=== PATIENT | female | born 1995 | race Two or more races ===

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

== ENCOUNTER 2017-06-02 00:09 | Emergency (ER) | payer MEDICAID ==
[~2017-06-02] VITALS: Ht 157.5 cm; Wt 95.7 kg
[~2017-06-02 00:09] MED LIST changes: +AUGMENTIN 500-1 EACH ORAL
[2017-06-02 00:20] VITALS: BP 130/84
[2017-06-02] MEDS ORDERED: PSEUDOEPHEDRINE30 MG PO (01:25)
[2017-06-02] MEDS ORDERED: FLONASE ALLERG9.9 ML NS (01:25)
[2017-06-02 01:33] VITALS: BP_SYST 145; BP_SYST 155; BP_DIAS 92; BP_DIAS 95
--- NOTE | 2017-06-02 05:39 | Emergency Room Report ---
History of Present Illness General Chief Complaint: Flu Like Symptoms Source: Patient Present Illness HPI 21YOF c/o 3 days sinus congestion, rhinorrhea, sore throat Denies fever/chills, headache, neck pain/stiffness Denies previous sinusitis Didnt take OTC meds Allergies: Coded Allergies: No Known Allergies (Unverified , 03/19/16) Patient History Past Medical History: none Past Surgical History: none Pertinent Family History: none Social History: Denies: smoking, alcohol use, drug use Last Menstrual Period: MAY 20 Now: No Immunizations: UTD Reviewed Nursing Documentation: PMH: Agreed, PSxH: Agreed Nursing Documentation-PMH Past Medical History: No Stated History Hx Hypertension: Yes Review of Systems All Other Systems: negative except mentioned in HPI Physical Exam Vital Signs Date Time Temp Pulse Resp B/P (MAP) Pulse Ox O2 Delivery O2 Flow Rate FiO2 06/02/17 00:15 98.1 118 18 155/95 98 Room Air Sp02 EP Interpretation: reviewed, normal General Appearance: normal inspection, well appearing, no apparent distress, alert, GCS 15, non-toxic Head: normocephalic, atraumatic Eyes: bilateral eye PERRL, bilateral eye EOMI ENT: normal ENT inspection, hearing grossly normal, normal pharynx, no angioedema, normal voice, nasal congestion, other - +maixillary sinus ttp Neck: normal inspection, full range of motion, supple, no bony tend Respiratory: normal inspection, lungs clear, normal breath sounds, no respiratory distress, no retraction, no wheezing Cardiovascular #1: regular rate, rhythm, no edema Gastrointestinal: normal inspection, normal bowel sounds, non tender, soft, no guarding, no hernia Genitourinary: no CVA tenderness Musculoskeletal: normal inspection, back normal, normal range of motion, Jj' s Sign negative Neurologic: normal inspection, alert, oriented x3, responsive, clinical laboratory service teacher III-XII nml as tested, speech normal Psychiatric: normal inspection, judgement/insight normal, mood/affect normal Skin: normal inspection, normal color, no rash Lymphatic: normal inspection Medical Decision Making Diagnostic Impression: Primary Impression: Sinusitis Qualified Codes: J01.00 - Acute maxillary sinusitis, unspecified ER Course Acute sinus congestion, sinusitis VSS. Afebrile. No strep pharyngitis Lungs CTAB No systemic symptoms, sepsis Rx Flonase, sudafed PMD followup DC home Last Vital Signs Date Time Temp Pulse Resp B/P (MAP) Pulse Ox O2 Delivery O2 Flow Rate FiO2 06/02/17 01:33 98.1 82 18 155/95 98 Room Air Status: improved Disposition: HOME, SELF-CARE Condition: Improved Scripts Pseudoephedrine Hcl* (SUDAFED*) 30 Mg Tablet 30 MG PO Q6H for sinus congestion for 3 Days, #20 TAB Prov: VISHNU MOSCOSO M.D. 06/02/17 Fluticasone Propionate (Flonase Allergy Relief) 9.9 Ml [place].susp 9.9 ML NS BID for 7 Days, #1 UNIT Prov: VISHNU MOSCOSO M.D. 06/02/17 Referrals: [facility],REFERRING (PCP) Patient Instructions: Sinusitis, Adult, [id number] Additional Instructions: Take sudafed and flonase as needed Twice a day for sinus congestion Followup with your primary care doctor in 2-3 days VISHNU MOSCOSO M.D. Jun 02, 2017 05:39
== END 2017-06-02 01:30 | disposition home or self-care (01) ==
LOC: EMR 00:30
DX: J01.00 Acute maxillary sinusitis, unspecified (principal)
CPT/HCPCS: 99284

== ENCOUNTER 2017-07-21 21:19 | Emergency (ER) | payer MEDICAID ==
[~2017-07-21] VITALS: Ht 157.5 cm; Wt 87.5 kg
[~2017-07-21 21:19] MED LIST changes: +FLONASE ALLERG9.9 ML NS; +PSEUDOEPHEDRINE30 MG PO
[2017-07-21 21:20] VITALS: BP 152/95
[2017-07-21 22:23] LABS: BASOPHILS % (AUTO) 1.1 % (0.0-2.0); EOSINOPHILS % (AUTO) 0.9 % (0.0-3.0); LYMPHOCYTES % (AUTO) 40.6 % (20.0-45.0); MEAN CORPUSCULAR HEMOGLOBIN 29.4 PG (27.0-31.0); MEAN CORPUSCULAR HGB CONC 31.8 G/DL (32.0-36.0); MEAN CORPUSCULAR VOLUME 93 FL (80-99); MEAN PLATELET VOLUME 6.7 FL (6.5-10.1); NEUTROPHILS % (AUTO) 48.4 % (45.0-75.0); PLATELET COUNT 297 K/UL (150-450); RED BLOOD COUNT 4.21 M/UL (4.20-5.40); RED CELL DISTRIBUTION WIDTH 11.4 % (11.6-14.8); WHITE BLOOD COUNT 9.8 K/UL (4.8-10.8)
[2017-07-21 22:27] LABS: ALANINE AMINOTRANSFERASE 50 U/L (12-78); ANION GAP 8 mmol/L (5-15); ASPARTATE AMINO TRANSFERASE 19 U/L (15-37); CALCIUM 9.5 MG/DL (8.5-10.1); CARBON DIOXIDE 30 MMOL/L (21-32); CHLORIDE 103 MMOL/L (98-107); CREATININE 0.8 MG/DL (0.55-1.30); GLOMERULAR FILTRATION RATE > 60 mL/min (>60); POTASSIUM 4.4 MMOL/L (3.5-5.1); SODIUM 141 MMOL/L (136-145); TOTAL PROTEIN 8.2 G/DL (6.4-8.2)
[2017-07-21 22:54] LABS: APPEARANCE,URINE CLEAR; KETONES,URINE NEGATIVE (NEGATIVE); LEUKOCYTE ESTERASE ,URINE NEGATIVE (NEGATIVE); NITRITE,URINE NEGATIVE (NEGATIVE); PH,URINE 6 (4.5-8.0); PROTEIN,URINE NEGATIVE (NEGATIVE); UROBILINOGEN,URINE NORMAL MG/DL (0.0-1.0)
[2017-07-21 23:09] VITALS: BP 158/86
--- NOTE | 2017-07-22 05:14 | Emergency Room Report ---
History of Present Illness General Chief Complaint: Dizziness Source: Patient Present Illness HPI 21-year-old female presents ED for evaluation. States that for last few days she's been feeling dizzy and weak. With nausea. Denies vomiting. Denies fevers or chills. Denies chest pain shortness of breath. No aggravating relieving factors. Denies any other associated symptoms Allergies: Coded Allergies: No Known Allergies (Unverified , 03/19/16) Patient History Past Medical History: HTN Past Surgical History: none Pertinent Family History: none Social History: Denies: smoking, alcohol use, drug use Last Menstrual Period: 07/19/17 Now: No Immunizations: UTD Reviewed Nursing Documentation: PMH: Agreed, PSxH: Agreed Nursing Documentation-PMH Past Medical History: No History, Except For Hx Hypertension: Yes Review of Systems All Other Systems: negative except mentioned in HPI Physical Exam Vital Signs Date Time Temp Pulse Resp B/P (MAP) Pulse Ox O2 Delivery O2 Flow Rate FiO2 07/21/17 21:20 98.2 87 20 152/95 100 Room Air Sp02 EP Interpretation: reviewed, normal General Appearance: no apparent distress, alert, GCS 15, non-toxic Head: normocephalic, atraumatic Eyes: bilateral eye normal inspection, bilateral eye PERRL ENT: hearing grossly normal, normal pharynx, no angioedema, normal voice Neck: full range of motion, supple/symm/no masses Respiratory: chest non-tender, lungs clear, normal breath sounds, speaking full sentences Cardiovascular #1: regular rate, rhythm, no edema Cardiovascular #2: 2+ carotid (R), 2+ carotid (L), 2+ radial (R), 2+ radial (L) , 2+ dorsalis pedis (R), 2+ dorsalis pedis (L) Gastrointestinal: normal bowel sounds, non tender, soft, non-distended, no guarding, no rebound Rectal: deferred Genitourinary: normal inspection, no CVA tenderness Musculoskeletal: back normal, gait/station normal, normal range of motion, non- tender Neurologic: alert, oriented x3, responsive, motor strength/tone normal, sensory intact, speech normal Psychiatric: judgement/insight normal, memory normal, mood/affect normal, no suicidal/homicidal ideation Reflexes: 3+ bicep (R), 3+ bicep (L), 3+ tricep (R), 3+ tricep (L), 3+ knee (R) , 3+ knee (L) Skin: normal color, no rash, warm/dry, well hydrated Lymphatic: no adenopathy Medical Decision Making Diagnostic Impression: Primary Impression: Hypertension Qualified Codes: I10 - Essential (primary) hypertension Additional Impression: Weakness ER Course 21-year-old female presents ED complaining of weakness and dizziness. Feeling nauseous. Differential-dehydration, UTI, sepsis Patient placed on stretcher. After initial history and physical I ordered labs , IV fluids, Zofran No leukocytosis. Hemoglobin/hematocrit stable, electrolytes okay,, UA negative On reassessment symptoms are improved. Patient states she feels better wishes to be discharged. Patient is hypertensive in triage. On last ED visit approximately 1 month ago patient was also noted to be hypertensive. Recommended patient followup with PMD for further recommendation, possibly antihypertensive medication Diagnoses-hypertension, weakness Stable and discharged to home. Followup with PMD. Return to ED if symptoms recur or worsen Labs Test 07/21/17 21:50 White Blood Count 9.8 K/UL (4.8-10.8) Red Blood Count 4.21 M/UL (4.20-5.40) Hemoglobin 12.4 G/DL (12.0-16.0) Hematocrit 39.0 % (37.0-47.0) Mean Corpuscular Volume 93 FL (80-99) Mean Corpuscular Hemoglobin 29.4 PG (27.0-31.0) Mean Corpuscular Hemoglobin Concent 31.8 G/DL (32.0-36.0) Red Cell Distribution Width 11.4 % (11.6-14.8) Platelet Count 297 K/UL (150-450) Mean Platelet Volume 6.7 FL (6.5-10.1) Neutrophils (%) (Auto) 48.4 % (45.0-75.0) Lymphocytes (%) (Auto) 40.6 % (20.0-45.0) Monocytes (%) (Auto) 9.0 % (1.0-10.0) Eosinophils (%) (Auto) 0.9 % (0.0-3.0) Basophils (%) (Auto) 1.1 % (0.0-2.0) Urine Color Pale yellow Urine Appearance Clear Urine pH 6 (4.5-8.0) Urine Specific [place] 1.020 (1.005-1.035) Urine Protein Negative (NEGATIVE) Urine Glucose (UA) Negative (NEGATIVE) Urine Ketones Negative (NEGATIVE) Urine Occult Blood Negative (NEGATIVE) Urine Nitrite Negative (NEGATIVE) Urine Bilirubin Negative (NEGATIVE) Urine Urobilinogen Normal MG/DL (0.0-1.0) Urine Leukocyte Esterase Negative (NEGATIVE) Urine HCG, Qualitative Negative Sodium Level 141 MMOL/L (136-145) Potassium Level 4.4 MMOL/L (3.5-5.1) Chloride Level 103 MMOL/L (98-107) Carbon Dioxide Level 30 MMOL/L (21-32) Anion Gap 8 mmol/L (5-15) Blood Urea Nitrogen 14 mg/dL (7-18) Creatinine 0.8 MG/DL (0.55-1.30) Estimat Glomerular Filtration Rate > 60 mL/min (>60) Glucose Level 127 MG/DL (74-106) Calcium Level 9.5 MG/DL (8.5-10.1) Total Bilirubin 0.3 MG/DL (0.2-1.0) Aspartate Amino Transf (AST/SGOT) 19 U/L (15-37) Alanine Aminotransferase (ALT/SGPT) 50 U/L (12-78) Alkaline Phosphatase 74 U/L (46-116) Total Protein 8.2 G/DL (6.4-8.2) Albumin 4.2 G/DL (3.4-5.0) Globulin 4.0 g/dL Albumin/Globulin Ratio 1.0 (1.0-2.7) Last Vital Signs Date Time Temp Pulse Resp B/P (MAP) Pulse Ox O2 Delivery O2 Flow Rate FiO2 07/21/17 23:09 85 21 158/86 98 Room Air 07/21/17 21:24 98.1 Status: improved Disposition: HOME, SELF-CARE Condition: Stable Patient Instructions: Near-Syncope RAVINDER SPARKS M.D. Jul 22, 2017 05:14
== END 2017-07-21 23:16 | disposition home or self-care (01) ==
LOC: EMR 21:42
DX: I10 Essential (primary) hypertension (principal); R53.1 Weakness; R42 Dizziness and giddiness
CPT/HCPCS: 36415; 80053; 81003; 81025; 85025; 96361; 96374; 99284; J2405

== ENCOUNTER 2017-09-25 17:39 | Emergency (ER) | payer MEDICAID ==
[~2017-09-25] VITALS: Ht 160 cm; Wt 87.5 kg
[2017-09-25 19:10] VITALS: BP 152/100
[2017-09-25] MEDS ORDERED: PROMETHAZINE-D118 ML ORAL (19:31)
[2017-09-25] MEDS ORDERED: IBUPROFEN600 MG ORAL (19:31)
[2017-09-25] MEDS ORDERED: TAMIFLU75 MG ORAL (19:31)
[2017-09-25 19:55] VITALS: BP 152/100
--- NOTE | 2017-09-25 21:46 | Emergency Room Report ---
History of Present Illness General Chief Complaint: Upper Respiratory Illness Source: Patient Present Illness [facility] The patient is a 22-year-old female presenting for cough, fever, chills, fatigue , and myalgia for the past 2 days. She has used DayQuil at home which helps. She denies any recent travel. She denies any other symptoms including shortness of breath, wheezing, rash, vomiting Allergies: Coded Allergies: No Known Allergies (Unverified , 03/19/16) Patient History Past Medical History: see triage record Pertinent Family History: none Last Menstrual Period: 09/21/17 Reviewed Nursing Documentation: PMH: Agreed, PSxH: Agreed Nursing Documentation-PMH Past Medical History: No History, Except For Hx Hypertension: Yes Review of Systems All Other Systems: negative except mentioned in HPI Physical Exam Vital Signs Date Time Temp Pulse Resp B/P (MAP) Pulse Ox O2 Delivery O2 Flow Rate FiO2 09/25/17 17:47 99.3 120 18 152/100 100 09/25/17 17:52 Room Air Sp02 EP Interpretation: reviewed, normal General Appearance: no apparent distress, alert, GCS 15, non-toxic Head: normocephalic, atraumatic Eyes: bilateral eye normal inspection, bilateral eye PERRL ENT: hearing grossly normal, normal pharynx, no angioedema, normal voice, uvula midline, nasal congestion, pharyngeal erythema Neck: full range of motion, supple/symm/no masses Respiratory: chest non-tender, lungs clear, normal breath sounds, speaking full sentences Cardiovascular #1: regular rate, rhythm, no edema Musculoskeletal: back normal, gait/station normal, normal range of motion, non- tender Neurologic: alert, oriented x3, responsive, motor strength/tone normal, sensory intact, speech normal Psychiatric: judgement/insight normal, memory normal, mood/affect normal, no suicidal/homicidal ideation Skin: normal color, no rash, warm/dry, well hydrated Lymphatic: no adenopathy Medical Decision Making PA Attestation Dr. Rhodes is my supervising physician. Patient management was discussed with my supervising physician Diagnostic Impression: Primary Impression: Influenza ER Course The patient is a 22-year-old female presenting for cough, fever, chills, fatigue , and myalgia for the past 2 days Differential diagnosis include but not limited to influenza, pharyngitis, sinusitis, AOM, bronchitis, PNA Physical exam: Patient is afebrile. Lethargic HEENT exam reveals pharyngeal erythema. No exudate. Nasal congestion Lungs are clear to auscultation bilaterally. No respiratory distress Skin warm and dry The patient will be treated for influenza with prescription for Motrin, Tamiflu , and cough medication. She is given strict ER precautions. She was told this is highly contagious. Last Vital Signs Date Time Temp Pulse Resp B/P (MAP) Pulse Ox O2 Delivery O2 Flow Rate FiO2 09/25/17 17:52 120 18 Room Air 09/25/17 17:47 99.3 152/100 100 Status: improved Disposition: HOME, SELF-CARE Condition: Improved Scripts Oseltamivir Phosphate (Tamiflu) 75 Mg Capsule 75 MG ORAL TWICE A DAY, #10 CAP Prov: KAYY TORRES.A. 09/25/17 D-Methorphan Hb/Prometh Hcl* (PROMETHAZINE-DM SYRUP*) 118 Ml Syrup 5 ML ORAL Q6H Y for For Cough, #118 ML 0 Refills Prov: KAYY TORRES P.A. 09/25/17 Ibuprofen* (MOTRIN*) 600 Mg Tablet 600 MG ORAL Q8H Y for For Pain, #30 TAB 0 Refills Prov: KAYY TORRES P.A. 09/25/17 Referrals: [facility],REFERRING (PCP) Patient Instructions: Influenza, Adult Additional Instructions: I discussed my findings with the patient. All questions and concerns have been answered. Treatment and medication compliance have been addressed. I advised the patient that they need to follow up with PMD in 3-5 days. Return to ED if pain remains or worsens, cough worsens or remains, you notice blood in your sputum, you notice wheezing, you experience a fever, or if needed for any reason. Patient verbalized understanding of discharge instructions. KAYY TORRES Sep 25, 2017 21:46
== END 2017-09-25 19:55 | disposition home or self-care (01) ==
LOC: EMR 19:30
DX: J11.1 Influenza due to unidentified influenza virus with other respiratory manifestations (principal); I10 Essential (primary) hypertension
CPT/HCPCS: 99283

== ENCOUNTER 2018-12-11 16:42 | Emergency (ER) | payer MEDICAID ==
[~2018-12-11] VITALS: Ht 160 cm; Wt 86.2 kg
[~2018-12-11 16:42] MED LIST changes: +PROMETHAZINE-D118 ML ORAL; +TAMIFLU75 MG ORAL
[2018-12-11 17:00] VITALS: BP 131/75
--- NOTE | 2018-12-11 17:00 | NUR ---
ED Nurse Note: pt walked in to ER c/o abdominal pain 07/09. pt aao x4, no V/N/D at this moment. pt able to provide urine. ambulatory and skin clean and intact.
[2018-12-11] MEDS ORDERED: Lidocaine 2% Visc 15ml soln ORAL ONE (17:15)
[2018-12-11] MEDS ORDERED: Dicyclomine HCl 10mg/5ml oral soln ORAL ONE (17:15)
[2018-12-11] MEDS ORDERED: Mylanta II UD 30ml ORAL ONE (17:15)
--- NOTE | 2018-12-11 17:15 | Emergency Room Report ---
History of Present Illness General Chief Complaint: Abdominal Pain Source: Patient Present Illness HPI 23-year-old female patient presents ER complaining of vomiting and diarrhea x3 days. Reports last episode of vomiting was earlier today and last episode of diarrhea was yesterday. Denies blood in vomit or stool. Reports able to pass gas and normal stool since that time. Reports one contact at home with similar symptoms. Denies recent travel outside the country. Denies fever, chest pain, shortness of breath. Reports epigastric abdominal pain. Denies radiation of pain symptoms. Denies drinking alcohol or drugs. Denies other aggravating or relieving factors. States is been able to tolerate p.o. fluids and food since that time without vomiting. Allergies: Coded Allergies: No Known Allergies (Unverified , 03/19/16) Patient History Past Medical History: see triage record Last Menstrual Period: 12/06/18 Reviewed Nursing Documentation: PMH: Agreed; PSxH: Agreed Nursing Documentation-PMH Past Medical History: No Stated History Hx Hypertension: Yes Review of Systems All Other Systems: negative except mentioned in HPI Physical Exam Vital Signs Date Time Temp Pulse Resp B/P (MAP) Pulse Ox O2 Delivery O2 Flow Rate FiO2 12/11/18 16:48 98.2 90 18 148/94 99 Room Air Sp02 EP Interpretation: reviewed, normal General Appearance: well appearing, no apparent distress, alert, GCS 15, non- toxic Head: normocephalic, atraumatic Eyes: bilateral eye normal inspection, bilateral eye PERRL ENT: hearing grossly normal, normal pharynx, no angioedema, normal voice, uvula midline, moist mucus membranes Neck: full range of motion, no meningismus, no bony tend Respiratory: lungs clear, normal breath sounds, no rhonchi, no respiratory distress, no accessory muscle use, no wheezing, speaking full sentences Cardiovascular #1: regular rate, rhythm, no edema, normal capillary refill Gastrointestinal: normal bowel sounds, non tender, soft, no mass, non-distended , no guarding, no rebound, other - Negative Rovsing, negative obturator Genitourinary: no CVA tenderness Musculoskeletal: back normal, digits/nails normal, gait/station normal, normal range of motion, non-tender Neurologic: alert, oriented x3, responsive, motor strength/tone normal, sensory intact Psychiatric: mood/affect normal Skin: no rash, normal turgor Medical Decision Making PA Attestation Dr. Monreal is my supervising Physician whom patient management has been discussed with. Diagnostic Impression: Primary Impression: Vomiting and diarrhea Additional Impression: Epigastric pain ER Course Pt. presents to the ED c/o vomiting and diarrhea. Ddx considered but are not limited to viral syndrome, gastritis, enteritis, food poisoning, GERD, reflux, dehydration, anemia. Physical exam benign, no abdominal TTP, negative Cadet sign, negative Rovsing, negative obturator, low suspicion for appendicitis or cholecystitis, does not require labs or imaging at this time. Vital signs: are WNL, pt. is afebrile at discharge. ordered zofran. ED COURSE: Provide with Zofran, GI cocktail, Pepcid and IV fluids. No fever, no blood in stool, no recent travel or hospitalizations, does not require abx treatment at this time. No signs of dehydration, moist mucus membranes, cap refill <2seconds, normal skin turgor. CBC and CMP unremarkable, no elevation WBCs or LFTs, electrolytes within normal limits, H&H normal, no dehydration Lipase within normal limits UA unremarkable, low suspicion for UTI, elevated RBCs likely due to patient currently on menstrual period. Urine negative Patient instructed on clear liquid diet and BRAT diet. Patient instructed to remain hydrated, drink plenty of fluids. Patient questions asked and answered. Patient states understanding and agreement to treatment plan. ER precautions given, return to ER for new or worsening of symptoms. DISCHARGE: Rx provided for Tylenol for pain symptoms Rx provided for zofran At this time pt. is stable for d/c to home. Patient is resting comfortably, laughing, in no acute distress, nontoxic appearing. Will provide printed patient care instructions, and any necessary prescriptions. Care plan and follow up instructions have been discussed with the patient prior to discharge. Patient instructed to followup with PCP in 3-5 days. Patient reports understanding and agreement to treatment plan. Patient questions asked and answered. ER precautions given; patient instructed to return to ER for new or worsening of symptoms including but not limited to fever, intractable vomiting, severe abdominal pain, blood in stool. - Please note that this Emergency Department Report was dictated using Videregenprint line supervisor technology software, occasionally this can lead to erroneous entry secondary to interpretation by the dictation equipment. Labs Test 3/14/19 17:40 White Blood Count 5.6 K/UL (4.8-10.8) Red Blood Count 4.85 M/UL (4.20-5.40) Hemoglobin 14.2 G/DL (12.0-16.0) Hematocrit 43.4 % (37.0-47.0) Mean Corpuscular Volume 90 FL (80-99) Mean Corpuscular Hemoglobin 29.3 PG (27.0-31.0) Mean Corpuscular Hemoglobin Concent 32.7 G/DL (32.0-36.0) Red Cell Distribution Width 10.9 % (11.6-14.8) Platelet Count 247 K/UL (150-450) Mean Platelet Volume 6.2 FL (6.5-10.1) Neutrophils (%) (Auto) 44.0 % (45.0-75.0) Lymphocytes (%) (Auto) 42.4 % (20.0-45.0) Monocytes (%) (Auto) 11.1 % (1.0-10.0) Eosinophils (%) (Auto) 1.2 % (0.0-3.0) Basophils (%) (Auto) 1.4 % (0.0-2.0) Urine Color Pale yellow Urine Appearance Clear Urine pH 7 (4.5-8.0) Urine Specific [place] 1.010 (1.005-1.035) Urine Protein Negative (NEGATIVE) Urine Glucose (UA) Negative (NEGATIVE) Urine Ketones Negative (NEGATIVE) Urine Blood 5+ (NEGATIVE) Urine Nitrite Negative (NEGATIVE) Urine Bilirubin Negative (NEGATIVE) Urine Urobilinogen 1 MG/DL (0.0-1.0) Urine Leukocyte Esterase Negative (NEGATIVE) Urine RBC 20-30 /HPF (0 - 2) Urine WBC 0 /HPF (0 - 2) Urine Squamous Epithelial Cells Occasional /LPF Urine Bacteria None /HPF (NONE) Urine HCG, Qualitative Negative (NEGATIVE) Sodium Level 140 MMOL/L (136-145) Potassium Level 3.8 MMOL/L (3.5-5.1) Chloride Level 104 MMOL/L (98-107) Carbon Dioxide Level 30 MMOL/L (21-32) Anion Gap 6 mmol/L (5-15) Blood Urea Nitrogen 14 mg/dL (7-18) Creatinine 0.7 MG/DL (0.55-1.30) Estimat Glomerular Filtration Rate > 60 mL/min (>60) Glucose Level 95 MG/DL (74-106) Calcium Level 9.4 MG/DL (8.5-10.1) Total Bilirubin 0.3 MG/DL (0.2-1.0) Aspartate Amino Transf (AST/SGOT) 29 U/L (15-37) Alanine Aminotransferase (ALT/SGPT) 58 U/L (12-78) Alkaline Phosphatase 77 U/L (46-116) Total Protein 8.8 G/DL (6.4-8.2) Albumin 4.4 G/DL (3.4-5.0) Globulin 4.4 g/dL Albumin/Globulin Ratio 1.0 (1.0-2.7) Lipase 164 U/L (73-393) Last Vital Signs Date Time Temp Pulse Resp B/P (MAP) Pulse Ox O2 Delivery O2 Flow Rate FiO2 12/11/18 17:00 90 18 Room Air 12/11/18 17:00 98.0 131/75 100 Status: improved Disposition: HOME, SELF-CARE Condition: Stable Scripts Acetaminophen* (TYLENOL EXTRA STRENGTH*) 500 Mg Tablet 500 MG ORAL Q8H PRN for Prn Headache/Temp > 101, #30 TAB 0 Refills Prov: Raul Maza 12/11/18 Ondansetron (Zofran) 4 Mg Tablet 4 MG ORAL Q6H PRN for Nausea & Vomiting, #8 TAB Prov: Raul Maza 12/11/18 Patient Instructions: Abdominal Pain, Adult, Diarrhea, Adult, [id number], Nausea and Vomiting, Adult, [id number] Additional Instructions: Followup with primary care provider in 3 -5 days for further treatment and referral to GI. Discuss testing for H.pylori. Keep food journal of foods eaten and times of symptom onset. Take medications as directed. Patient questions asked and answered. Drink fluids as tolerated to prevent dehydration. Take Tylenol OTC for pain, Mylanta OK. void spicy foods, avoid dairy foods. BRAT diet: bananas, rice, apple sauce, toast. Consider Immodium for diarrhea and Tylenol for pain symptoms. Avoid spicy foods, avoid dairy, avoid alcohol. Do not eat late night meals. Elevate head of bed when sleeping. ER precautions given, patient instructed to return to ER immediately for any new or worsening of symptoms including but not limited to chest pain, SOB, abdominal pain, blood in vomit. Raul Maza. Dec 11, 2018 17:15
[2018-12-11 17:55] LABS: APPEARANCE,URINE CLEAR; BILIRUBIN, URINE NEGATIVE (NEGATIVE); COLOR,URINE PALE YELLOW; GLUCOSE, URINE (UA) NEGATIVE (NEGATIVE); KETONES,URINE NEGATIVE (NEGATIVE); LEUKOCYTE ESTERASE ,URINE NEGATIVE (NEGATIVE); NITRITE,URINE NEGATIVE (NEGATIVE); PH,URINE 7 (4.5-8.0); PROTEIN,URINE NEGATIVE (NEGATIVE); UROBILINOGEN,URINE 1 MG/DL (0.0-1.0)
[2018-12-11 17:58] LABS: BASOPHILS % (AUTO) 1.4 % (0.0-2.0); EOSINOPHILS % (AUTO) 1.2 % (0.0-3.0); HEMATOCRIT 43.4 % (37.0-47.0); HEMOGLOBIN 14.2 G/DL (12.0-16.0); LYMPHOCYTES % (AUTO) 42.4 % (20.0-45.0); MEAN CORPUSCULAR VOLUME 90 FL (80-99); MONOCYTES % (AUTO) 11.1 % (1.0-10.0); PLATELET COUNT 247 K/UL (150-450); RED BLOOD COUNT 4.85 M/UL (4.20-5.40); RED CELL DISTRIBUTION WIDTH 10.9 % (11.6-14.8); WHITE BLOOD COUNT 5.6 K/UL (4.8-10.8)
[2018-12-11 18:12] LABS: ANION GAP 6 mmol/L (5-15); BLOOD UREA NITROGEN 14 mg/dL (7-18); CALCIUM 9.4 MG/DL (8.5-10.1); CARBON DIOXIDE 30 MMOL/L (21-32); CHLORIDE 104 MMOL/L (98-107); CREATININE 0.7 MG/DL (0.55-1.30); POTASSIUM 3.8 MMOL/L (3.5-5.1); SODIUM 140 MMOL/L (136-145)
[2018-12-11 18:16] LABS: ALANINE AMINOTRANSFERASE 58 U/L (12-78); ALBUMIN 4.4 G/DL (3.4-5.0); ALKALINE PHOSPHATASE 77 U/L (46-116); ASPARTATE AMINO TRANSFERASE 29 U/L (15-37); BILIRUBIN,TOTAL 0.3 MG/DL (0.2-1.0)
[2018-12-11] MEDS ORDERED: ZOFRAN4 M1 ORAL (18:22)
[2018-12-11] MEDS ORDERED: TYLENOL EXTRA500 MG ORAL (18:22)
[2018-12-11 18:40] VITALS: BP 136/86
--- NOTE | 2018-12-11 18:40 | NUR ---
ER DISCHARGE NOTE: Patient is cleared to be discharged per ERMD, pt is aox4, on room air, with stable vital signs. pt was given dc and prescription instructions, pt was able to verbalize understanding, pt id band and iv site removed without complications. pt is able to ambulate with steady gait. pt took all belongings.
== END 2018-12-11 18:40 | disposition home or self-care (01) ==
LOC: EMR 17:53
DX: R11.10 Vomiting, unspecified (principal); R19.7 Diarrhea, unspecified; R10.13 Epigastric pain; I10 Essential (primary) hypertension
CPT/HCPCS: 36415; 80053; 81003; 81025; 83690; 85025; 96361; 96374; 96375; 99284; J2405; S0028